=== PATIENT | male | born 1995 | race Caucasian/White ===

== ENCOUNTER 2019-05-26 04:52 | Day surgery (SDC) | payer BC ==
[2019-05-25 10:27] VITALS: BMI 31.0
[2019-05-26 07:22] LABS: PH,URINE 5.5 (5.0-8.0); URINE APPEARANCE CLEAR; URINE BILIRUBIN NEGATIVE (NEGATIVE); URINE COLOR YELLOW; URINE GLUCOSE (UA) NEGATIVE (NEGATIVE); URINE KETONE NEGATIVE (NEGATIVE); URINE LEUK ESTERASE NEGATIVE (NEGATIVE); URINE NITRITE NEGATIVE (NEGATIVE); URINE PROTEIN NEGATIVE (NEGATIVE); URINE UROBILINOGEN 0.2 mg/dL (0.2-1.0)
[2019-05-26] MEDS ORDERED: BUPIVACAINE HCL/PF 0.5% (5MG/ML) 10 ML VIAL ONE (07:38)
[2019-05-26] MEDS ORDERED: LIDOCAINE HCL/PF 2% SDV 5ML VIAL ONE ×2 (07:48→08:13)
[2019-05-26] MEDS ORDERED: PROPOFOL 20 ML ONE ×2 (07:50→07:52)
[2019-05-26] MEDS ORDERED: MIDAZOLAM HCL 2 MG/2 ML SINGLE DOSE VIAL ONE (07:53)
[2019-05-26] MEDS ORDERED: EPHEDRINE SULFATE/0.9% NACL/PF 50 MG/10 ML SYRINGE NR ONE (07:56)
--- NOTE | 2019-05-26 08:05 | HP ---
[facility]ellite [facility] - Chief Complaint Chief Complaint: left knee pain History of Present Illness: left knee medial meniscus tear Limitations to Obtaining History: No Limitations - Past Medical History Allergies/Adverse Reactions: Allergies Allergy/AdvReac Type Severity Reaction Status Date / Time No Known Allergies Allergy Verified 05/25/19 10:27 - Current Medications Current Medications: Home Medications Medication Instructions Recorded NK [No Known Home Medication] 05/25/19 Satellite Physical Exam - Physical Examination Vital Signs: Vital Signs Period Temp Pulse Resp BP Sys/Zaidi Pulse Ox Last 24 Hr 98.4 F 66 18 121/76 99 General Appearance: Well Nourished ENT: Clear Lung: Clear to auscultation Heart: Regular rate & rhythm Breasts: Soft Abdomen: Soft Extremities: No edema Satellite Impression/Plan - Impression/Plan Impression: left knee medial meniscus tear Operative Procedure: left knee arthroscopy Date to be Performed: 05/26/19
[2019-05-26] MEDS ORDERED: ceFAZolin SODIUM 1 GM VIAL IVPB ONE (08:06)
[2019-05-26] MEDS ORDERED: ceFAZolin SODIUM 1 GM VIAL ONE (08:13)
[2019-05-26] MEDS ORDERED: DEXAMETHASONE SOD PHOSPHATE 4 MG/1 ML VIAL ONE (08:13)
[2019-05-26] MEDS ORDERED: BUPIVACAINE HCL/PF (5 MG/ML) 30 ML VIAL IJ ONE (08:50)
[2019-05-26] MEDS ORDERED: ONDANSETRON 4 MG/2 ML VIAL IVPUSH PRN (10:24)
[2019-05-26] MEDS ORDERED: oxyCODONE HCL 5 MG TABLET PO PRN (10:24)
--- NOTE | 2019-05-26 10:24 | OP ---
DATE OF OPERATION: 05/26/2019 PREOPERATIVE DIAGNOSIS: Left knee pain. POSTOPERATIVE DIAGNOSIS: Left knee symptomatic plica and synovitis. SURGEON: Jagdish Wright MD REQUIREMENTS ENGINEER: None. INSURANCE EXAMINER: Dickson Dotson CRNA ANESTHESIA: LMA anesthesia and local injection of 20 mL of 0.5% Marcaine 1% lidocaine mixed. DRAINS: None. COMPLICATIONS: None. SPECIMENS: Arthroscopic shavings. BLOOD LOSS: None. BLOOD GIVEN: None. FLUID REPLACEMENT: 500 mL. PROCEDURE: Left knee arthroscopy, partial synovectomy, medial plica excision, and trephination of the medial meniscus. INDICATIONS: This patient is a 23-year-old male with a preoperative diagnosis of recurrent left knee pain and swelling. After understanding the potential risks, complications, alternatives, and benefits of surgery versus nonsurgical treatment, the patient elected to undergo this procedure. DESCRIPTION OF PROCEDURE: The patient was brought to the operating room, peripheral IV placed, and IV sedation was given. Two grams of IV Ancef were given. LMA anesthesia was induced. He was placed into the C-clamp leg-guajardo with ample padding throughout. The left lower extremity was prepped and draped in sterile fashion, elevated, exsanguinated with an Esmarch bandage, and tourniquet was inflated to 275 mmHg. A superomedial outflow portal was established, a lateral portal was established, and a diagnostic arthroscopy was performed under direct visualization using a spinal needle, and medial portal was established. About 20 mL of dark yellow inflammatory fluid was extravasated from the . The patients medial compartment looked good. The patient had no osteoarthritis, and the medial meniscus looked absolutely fine. It was not until I put in the probe that the patient had a very small separation between the peripheral most fibers of the medial meniscus at the junction of the body and the posterior horn and the capsule. It was quite small. Therefore, instead of doing a repair, I just did a simple trephination with the spinal needle. The rest of the meniscus looked fine. Photographs were taken throughout. The intercondylar notch was inspected. The ACL had the appropriate tension. Photographs were taken. The lateral compartment also looked quite good. Here, there was a lot of synovitis, however. The lateral compartment had no osteoarthritis, and the lateral meniscus looked good. A partial synovectomy was performed in the lateral compartment. Next, the patellofemoral joint was inspected. Here, the actual undersurface of the patella and the femoral trochlea looked good, but there was degeneration of cartilage and a small flap on the medial femoral condyle directly underneath a large robust retained medial plica. I put the knee through a range of motion. I could directly visualize contact between the plica and the medial femoral condyle cartilage. Therefore, using a combination of the 45-degree left biter forceps and the curved shaver, I excised the medial plica. I then put the knee through a range of motion. There were no other points of contact. I also did a gentle debridement chondroplasty. The area was copiously irrigated and washed out. I then looked through each compartment again and did not see any abnormal tissue. The area was copiously irrigated and washed out again. Excess saline removed. The arthroscopy portals were closed with 3-0 nylon sutures. The area was washed and dried, covered with Xeroform, 20 mL of 0.5% Marcaine was introduced into the joint. The area was then covered with sterile 4x4s, Webril, and Tanner bandage. The tourniquet was taken down after total tourniquet of 19 minutes. There were no complications during the case. The patient tolerated the procedure quite well, was brought to the ambulatory recovery room. JAGDISH WRIGHT M.D. [id number]
[2019-05-26] MEDS ORDERED: LACTATED RINGERS SOLUTION 1,000 ML IV SCH (10:30)
--- NOTE | 2019-05-26 10:48 | OP ---
Operative Note - Note: Operative Date: 05/26/19 Pre-Operative Diagnosis: left knee pain Operation: left knee arthroscopy, partial synovectomy, medial plica excision Findings: medial plica Post-Operative Diagnosis: Same as Pre-op Surgeon: Young Rivera Anesthesiologist/COVER INSPECTOR: Jefe Dotson Anesthesia: Local, MAC Specimens Removed: shavings Estimated Blood Loss (mls): 0 Drains, Volume Out (mls): 0 Blood Volume Replaced (mls): 0 Fluid Volume Replaced (mls): 500 Operative Report Dictated: Yes
[2019-05-26 11:15] VITALS: BP 115/70; PULSE 66; TEMP 98
--- NOTE | 2019-05-27 15:38 | PATH ---
Surgical Pathology Report Patient Name: FERN HANNAH Med. Rec. #: [id number] /Age/Gender: 1995 (Age: 23) / M Account: [id number] Location: [facility] SURGICAL Taken: 05/26/2019 Received: 05/26/2019 Reported: 05/27/2019 Physicians: Young Rivera M.D. Specimen(s) Received LEFT KNEE SHAVINGS Clinical History Left knee tear Final Diagnosis KNEE SHAVINGS, LEFT, ARTHROSCOPY: FRAGMENTS OF CARTILAGE, DENSE FIBROCONNECTIVE TISSUE, ADIPOSE TISSUE, AND REACTIVE SYNOVIUM WITH CHRONIC INFLAMMATION. Electronically Signed Ina Agarwal M.D. Gross Description Received in formalin, labeled "shaving left knee," is a 5.0 x 4.0 x 0.3 cm. aggregate of john-yellow soft tissue fragments. A investment representative portion is submitted in one cassette. /05/26/2019 saudi/05/26/2019
== END 2019-05-26 11:45 | disposition home or self-care (01) ==
LOC: JASU-SURG 04:52
PROVIDERS: ATTEND Orthopaedic Surgery
PROC: 0SCD4ZZ Extirpation of Matter from Left Knee Joint, Percutaneous Endoscopic Approach (ICD-10-PCS; principal; 2019-05-26 08:00)
DX: M65.9 Synovitis and tenosynovitis, unspecified (principal); M67.52 Plica syndrome, left knee
CPT/HCPCS: 81003; 88304-TC; 94760